=== PATIENT | male | born 1950 | race Caucasian/White ===

== ENCOUNTER → 2017-07-23 | Day surgery (SDC) | payer MEDICARE ==
[~2017-07-23] VITALS: Ht 170.2 cm; Wt 64.4 kg
[~2017-07-23] MED LIST: 0.9% Sodium Chloride 1,000 ML IV SCH; Sodium Chloride LOK Flush 10 mL Syringe IV PRN; fentaNYL-PF 50 mCg/mL 2 mL Inj IVPUSH PRN
[2017-07-23 12:24] VITALS: BP 138/96; PULSE 74; RESP 16; O2SAT 98
[2017-07-23 13:48] VITALS: BP 112/73; PULSE 70; RESP 12; O2SAT 97
--- NOTE | 2017-07-23 13:48 | PCM.ENDCOL ---
Colonoscopy Date of Service: Jul 23, 2017 Physician Shaun Mei MD Pre Procedure Diagnosis: Screening Post Procedure Dx & Findings: Polyp hemorrhoids diverticuli Procedure Colonoscopy PROCEDURE IN DETAIL: Prep adequate Withdrawal time 17 minutes After unremarkable rectal examination the Olympus video colonoscope was inserted patient's anal canal and was advanced to cecum. Landmarks were identified including the ileocecal valve and appendiceal orifice. Scope was withdrawn systematically. Visualized colonic mucosa showed healthy shiny mucosa with normal healthy-appearing vasculature. In the cecum, there was a 1 mm polyp was referred completely using cold forceps. The transverse colon there was a 1 mm polyp which was removed completely using cold forceps. In the sigmoid colon there was a 1/2-2 cm polyp which was removed completely using hot snare. 2 resolution clips deployed. Small to medium-sized diverticula noted mostly in the sigmoid colon however scattered up to the transverse colon. In the rectum retroflexion was done which showed hemorrhoids. Anal canal was inspected carefully on the way out and hemorrhoids noted. Impression Polyps 3 status post complete removal. largest one is about 1-1/2 cm. Diverticuli Hemorrhoids Recommendation Repeat colonoscopy 3 years. Diverticular diet Presedation Assessment Risks and Benefits Informed consent was obtained from the patient after all risks and benefits including but not limited to drug reaction, infection, pain, bleeding, perforation, as well as alternatives were discussed. Patient monitoring Continuous pulse oximetry, cardiac monitoring, blood pressure monitoring, IV access, and oxygen at 2L per nasal cannula. Periprocedural Fentanyl: Fentanyl 125mcg Incrementally Midazolam: Midazolam 6mg Incrementally Complications There were no periprocedural complications identified. Post Procedure Plan Post Procedure Recommendations 1. Restrict activities today. 2. Resume normal activities in the morning. 3. Resume medications. 4. Patient informed of normal post procedure side effects as bloating, drowsiness, blood streaking in the stool. 5. average risk CRCS. If colon polyps come back as: -Hyperplastic- can repeat colonoscopy in 10 years -Tubular adenoma- repeat colonoscopy in 5 years -Tubulovillous/villous adenoma- repeat colonoscopy in 3 years -If any dysplasia- return to clinic as soon as possible 6. Please don't hesitate to call me with any questions. Shaun Mei MD Jul 23, 2017 13:48
[2017-07-23 13:59] VITALS: BP 119/71; PULSE 71; RESP 12; O2SAT 97
[2017-07-23 14:03] VITALS: BP 110/77; PULSE 85; RESP 14; O2SAT 97
--- NOTE | 2017-07-29 11:31 | PATH ---
SURGICAL PATHOLOGY Attending Physician:Shaun Mei M.D. CASE STATUS: Signed Out PATIENT NAME: SELENA SANDOVAL PID: [id number] : 1950 DATE COLLECTED:07/23/2017 00:00 SPECIMEN: 1: Colon, Polyp 2: Colon, Polyp 3: Colon, Polyp CLINICAL HISTORY: 1). CECAL POLYP 2). TRANSVERSE COLON POLYP 3). SIGMOID COLON POLYP FINAL DIAGNOSIS: 1.CECUM, POLYP, BIOPSY: TUBULAR ADENOMA. 2.TRANSVERSE COLON, POLYP, BIOPSY: TUBULAR ADENOMA. 3.SIGMOID COLON, POLYP, BIOPSY: TUBULOVILLOUS ADENOMA. No evidence of malignancy or high-grade dysplasia. ICD10 D12.0 D12.3 D12.5 GROSS DESCRIPTION: The specimen is received in three formalin filled containers labeled with the patient's name. 1). The specimen is labeled "cecal polyp" and consists of a 0.2 x 0.2 x 0.2 CM portion of tissue which is entirely submitted in cassette 1A. 2). The specimen is labeled "transverse polyp" and consists of 2 portions of tissue which aggregate to 0.3 x 0.3 x 0.2 CM. The specimen is entirely submitted in cassette 2A. 3). The specimen is labeled "sigmoid polyp" and consists of a 1.0 x 0.8 x 0.6 CM portion of tissue. The specimen is trisected and entirely submitted in cassette 3A. 07/24/2017DC MICRO DESCRIPTION: See diagnosis. ICD-9 CODES: CPT CODES: 1: 83641 2: 57693 3: 14881 Electronically Signed Out Sarai Rodrigues MD [facility] [address], [place] [address] Technical component performed at [facility], [facility] [address], [place], [address]
== END | disposition home or self-care (01) ==
LOC: END 08:26
PROVIDERS: ATTEND Internal Medicine
DX: Z12.11 Encounter for screening for malignant neoplasm of colon (principal); D12.0 Benign neoplasm of cecum; D12.3 Benign neoplasm of transverse colon; D12.5 Benign neoplasm of sigmoid colon; K57.30 Diverticulosis of large intestine without perforation or abscess without bleeding; K64.8 Other hemorrhoids; Z83.71 Family history of colonic polyps; E06.9 Thyroiditis, unspecified
CPT/HCPCS: 45380; 45385; 88305; 99153; G0500; J2250; J3010; J7030